=== PATIENT | female | born 1965 | race Caucasian/White ===

== ENCOUNTER → 2018-03-18 10:13 | Outpatient (CLI) | payer OTHER, SELFPAY ==
--- NOTE | 2018-03-18 | DI.CT.S_ITS ---
PROCEDURE: CT ABDOMEN PELVIS W CON INDICATIONS: epigastric pain TECHNIQUE: After the administration of oral and intravenous contrast, 5 mm thick sections acquired from the diaphragms to the symphysis. 5 mm thick coronal and sagittal reformats were performed. For radiation dose reduction, the following was used: automated exposure control, adjustment of mA and/or kV according to patient size. COMPARISON: [facility], CT, ABDOMEN/PELVIS WITH CONTRAST, 09/21/2014, 17:09. [facility], US, ABDOMEN COMPLETE, 09/25/2016, 13:51. FINDINGS: Image quality: Excellent. ABDOMEN: Lung bases: Lung bases are clear. Heart size is normal. Solid organs: Liver is normal in size with homogeneous decreased attenuation. The 10 mm subcapsular cyst is again noted anteriorly. Gallbladder appears clear, partially contracted.. Biliary system is non-dilated. Pancreas enhances normally. Spleen is normal in size and enhancement. No adrenal nodules. Kidneys are normal in size and enhancement, without hydronephrosis. Peritoneum and bowel: Stomach, small bowel, and colon loops are normal in caliber and wall thickness. Normal appendix. Circumferential suture is again noted at the anorectal junction. No evidence of tumor recurrence or adenopathy. No free fluid or air. Nodes and vessels: No retroperitoneal or mesenteric adenopathy. Aorta and inferior vena cava are normal in caliber. Miscellaneous: No ventral hernias. PELVIS: Genitourinary: Bladder wall thickness is normal. Miscellaneous: No inguinal hernias or adenopathy. Bones: No suspicious bony lesions. No vertebral body compression fractures. IMPRESSION: 1. No acute findings in the abdomen or pelvis to explain abdominal pain. 2. Mild hepatic steatosis. Simple hepatic cyst, unchanged. 3. Postoperative changes at the anorectal junction with no apparent abnormality. 4. Normal appendix is demonstrated. No inflammatory bowel disease seen. Dictated by: Oemga Sanchez M.D. on 03/18/2018 at 12:00 Approved by: Omega Sanchez M.D. on 03/18/2018 at 12:12
== END ==
PROVIDERS: Family Provider Family Medicine; PCP Physician Assistant; Visit Provider Family Medicine
DX: R10.13 Epigastric pain (principal); K76.0 Fatty (change of) liver, not elsewhere classified; K76.89 Other specified diseases of liver
CPT/HCPCS: 74177; Q9967

== ENCOUNTER → 2018-06-16 09:34 | Outpatient (CLI) | payer OTHER, SELFPAY ==
--- NOTE | 2018-06-16 | DI.NM.S_ITS ---
PROCEDURE: NM HIDA WITH CCK PHARMACEUTICAL: 19.4 mCi Tc-99m mebrofenin IV; 1.5 mcg CCK IV. INDICATIONS: BILIARY COLIC TECHNIQUE: Following intravenous administration of Tc-99m mebrofenin, sequential anterior abdominal images were obtained. To evaluate the contractile response of the gallbladder in response to Cholecystokinin (CCK), sincalide (0.02 ?g/kg) was administered by slow intravenous infusion approximately 60 minutes after the administration of the radiopharmaceutical. Sequential imaging was continued for 30 minutes after the start of CCK infusion. Gallbladder ejection fraction was calculated. COMPARISON: None. FINDINGS: Biliary scan: There is normal tracer uptake and excretion by the liver. There is normal visualization of the intrahepatic ducts, common bile duct, and gallbladder. There is normal tracer transit into the duodenum. CCK stimulation: There is normal contractile response of the gallbladder to CCK infusion. The calculated gallbladder ejection fraction is 65%; normal values are above 35%. It has been shown that any patient abdominal pain after CCK administration is related to the rate of CCK injection, rather than to any underlying gallbladder disease (Clinical Nuclear Medicine 2012; 37: 63-70. Journal of Nuclear Medicine 2014; 55: 1-9). IMPRESSION: Normal examination without evidence of cholecystitis. Dictated by: Lori Lucia MD, PhD on 06/16/2018 at 12:11 Approved by: Lori Lucia MD, PhD on 06/16/2018 at 12:12
== END ==
PROVIDERS: PCP Family Medicine; Visit Provider Family Medicine
DX: K80.50 Calculus of bile duct without cholangitis or cholecystitis without obstruction (principal)
CPT/HCPCS: 78227; A9537; J2805

== ENCOUNTER → 2019-06-23 11:05 | Outpatient (CLI) | payer OTHER, SELFPAY ==
--- NOTE | 2019-06-23 | DI.MRI.S_ITS ---
PROCEDURE: MR LUMBAR SPINE WO CON INDICATIONS: LOW LACK PAIN TECHNIQUE: Noncontrast sagittal T1 spin echo and T2 fast echo, sagittal STIR, axial T1 and T2 fast spin echo through the lumbar spine. In cases with scoliosis, additional coronal T2 fast spin echo may be performed. COMPARISON: [facility], CT, CT ABDOMEN PELVIS W CON, 03/18/2018, 11:33. [facility] [place], CR, XR LUMBAR SPINE 2 OR 3 VIEWS, 05/10/2019, 9:37. FINDINGS: Image quality: Excellent. Alignment and Curvature: There is grade 1 anterolisthesis of L3 on L4 and L4 on L5. Bone Marrow: Marrow is of normal overall signal. No acute vertebral body compression fractures. Spinal Cord: Conus medullaris terminates at the L1 level. Visualized cord demonstrates normal signal and size. Paraspinous Soft Tissues: No paravertebral masses. L1-L2: Normal appearance. L2-L3: Normal appearance. L3-L4: Mild loss of disc height and disc desiccation. There is diffuse posterior disc bulge. Mild bilateral facet arthropathy and hypertrophy of ligamentum flavum. There is a 3 mm synovial cyst anteromedial to the left facet joint. The central canal is pihd-pv-btpwxundez narrowed. Mild bilateral foraminal stenosis. Probable nerve root impingement it is an oval cyst to cauda equina nerve roots. L4-L5: Mild loss of disc height and disc desiccation. There is diffuse posterior disc bulge. Mild bilateral facet arthropathy and hypertrophy of ligamentum flavum. The central canal is mildly narrowed. No significant foraminal stenosis. No definitive nerve root impingement. L5-S1: Normal appearance. IMPRESSION: 1. Multilevel degenerative disc disease and facet arthropathy as described. 2. Rgsy-yd-otixwerp central canal stenosis at L3-L4, and mild central canal stenosis at L4-L5. 3. Mild foraminal stenosis at L3 and L4 bilaterally. Dictated by: Raymundo rFench M.D. on 06/23/2019 at 15:35 Approved by: Raymundo French M.D. on 06/23/2019 at 15:44
== END ==
PROVIDERS: PCP Family Medicine; Visit Provider Orthopaedic Surgery
DX: M54.5 Low back pain (principal); M51.36 Other intervertebral disc degeneration, lumbar region; M48.061 Spinal stenosis, lumbar region without neurogenic claudication; M47.816 Spondylosis without myelopathy or radiculopathy, lumbar region
CPT/HCPCS: 72148

== ENCOUNTER → 2020-12-19 11:14 | Outpatient (CLI) | payer OTHER, SELFPAY ==
--- NOTE | 2020-12-19 | DI.MG.S_ITS ---
BILATERAL DIGITAL SCREENING MAMMOGRAM 3D/2D WITH CAD: 12/19/2020 CLINICAL: Routine screening. Family history of breast cancer. Comparison is made to exams dated: 05/05/2019 mammogram - [facility], 12/31/2017 mammogram, and 12/11/2016 mammogram - [facility]. There are scattered fibroglandular elements in both breasts. Current study was also evaluated with a Computer Aided Detection (CAD) system. There is a benign lymph node in the left breast. There also is a biopsy clip in the right breast. No significant masses, calcifications, or other findings are seen in either breast. There has been no significant interval change. IMPRESSION: BENIGN There is no mammographic evidence of malignancy. A 1 year screening mammogram is recommended. This exam was interpreted at Station ID: [id number]. NOTE: For mammograms, a report in lay terms will be sent to the patient. Approximately 15% of breast malignancies will not be visualized mammographically. In the management of a palpable breast mass, a negative mammogram must not discourage biopsy of a clinically suspicious lesion. Electronically Signed By: Josh Pa acr/penrad:12/19/2020 12:21:53 letter sent: Normal Exam ACR BI-RADS Category 2: Benign Finding(s) [id number]
== END ==
PROVIDERS: PCP Family Medicine; Referring Provider Family Medicine; Visit Provider Family Medicine
DX: Z12.31 Encounter for screening mammogram for malignant neoplasm of breast (principal)
CPT/HCPCS: 77063; 77067

== ENCOUNTER → 2021-08-15 08:52 | Outpatient (CLI) | payer OTHER, SELFPAY ==
[2021-08-15 20:04] LABS: COVID19 - ORCAS (NP or Nasal) POSITIVE (Negative)
== END ==
PROVIDERS: PCP Family Medicine; Visit Provider Physician Assistant Medical
DX: Z20.822 Contact with and (suspected) exposure to COVID-19 (principal)
CPT/HCPCS: U0003

== ENCOUNTER → 2021-09-17 08:48 | Outpatient (CLI) | payer OTHER, SELFPAY ==
[2021-09-17 18:47] LABS: Add Manual Diff / Slide Review NO; Basophils Absolute Auto 100 /uL (0-100); Basophils Percent Auto 1.2 % (0-2); Eosinophils Absolute Auto 600 /uL (0-450); Hematocrit 39.5 % (36-46); Hemoglobin 13.6 g/dL (12.0-16.0); Lymphocytes Absolute Auto 2000 /uL (1100-4500); Lymphocytes Percent Auto 34.7 % (25-40); Mean Corpuscular HGB Conc 34.3 % (30-36); Mean Corpuscular Hemoglobin 30.1 PG (26-34); Mean Corpuscular Volume 87.5 fL (80-100); Monocytes Absolute Auto 500 /uL (0-900); Monocytes Percent Auto 8.1 % (3-14); Neutrophils Absolute Auto 2600 /uL (1500-7000); Platelet Count 208 X10^3/uL (150-400); Red Blood Cell Count 4.52 X10^6/uL (4.0-5.2); Red Cell Distribution Width 12.6 % (11.6-14.8); White Blood Cell Count 5.7 X10^3/uL (4.5-11.0)
[2021-09-17 18:57] LABS: C-Reactive Protein Quant < 0.5 mg/dL (<1.0)
[2021-09-17 19:01] LABS: Alanine Aminotransferase 21 IU/L (<35); Albumin 4.7 g/dL (3.5-5.0); Albumin Globulin Ratio 1.6 (1.0-2.8); Alkaline Phosphatase 69 U/L (38-126); Aspartate Aminotransferase 28 IU/L (14-36); BUN Creatinine Ratio 13.5 (6-22); Bilirubin Total 0.6 mg/dL (0.2-1.3); Blood Urea Nitrogen 10 mg/dL (7-17); Calcium 10.1 mg/dL (8.4-10.2); Carbon Dioxide 26 mmol/L (22-32); Chloride 105 mmol/L (98-107); Cholesterol 260 mg/dL (140-199); Estimated Glomerular Filt Rate > 60.0 mL/min (>60); Globulin 2.9 g/dL (1.7-4.1); Glucose 100 mg/dL (70-100); HDL Cholesterol 69 mg/dL (40-60); HEMOLYSIS < 15 (0-50); LDL Cholesterol Calculated 157 mg/dL (<100); Potassium 4.5 mmol/L (3.4-5.1); Sodium 140 mmol/L (137-145); Total Protein 7.6 g/dL (6.3-8.2); Triglycerides 168 mg/dL (35-150)
[2021-09-17 19:05] LABS: Hemoglobin A1C% w Est Avg Glu 5.6 % (4.0-6.0)
[2021-09-17 19:08] LABS: Erythrocyte Sedimentation Rate 4 MM/HR (0-20)
[2021-09-17 19:29] LABS: TSH w/ Reflex to FT4 2.56 uIU/mL (0.47-4.68)
== END ==
PROVIDERS: PCP Physician Assistant; Referring Provider Physician Assistant; Visit Provider Physician Assistant
DX: E78.00 Pure hypercholesterolemia, unspecified (principal); R73.09 Other abnormal glucose; E89.0 Postprocedural hypothyroidism; G93.3 Postviral and related fatigue syndromes; R52 Pain, unspecified; R11.0 Nausea
CPT/HCPCS: 80053; 80061; 83036; 84443; 85025; 85651; 86140

== ENCOUNTER → 2022-07-26 08:52 | Outpatient (CLI) | payer OTHER, SELFPAY | PROVIDERS: PCP Physician Assistant; Referring Provider Physician Assistant; Visit Provider Physician Assistant | DX: H81.10 Benign paroxysmal vertigo, unspecified ear (principal); M54.2 Cervicalgia; M62.838 Other muscle spasm ==

== ENCOUNTER → 2022-08-08 08:39 | Outpatient (CLI) | payer OTHER, SELFPAY ==
--- NOTE | 2022-08-08 08:40 | DI.MRI.S_ITS ---
PROCEDURE: MR CERVICAL SPINE WO CON INDICATIONS: neck pain TECHNIQUE: Noncontrast sagittal T1 spin echo and T2 fast spin echo, sagittal STIR, foraminal oblique sagittal T2 fast spin echo, and axial gradient echo or T2 fast spin echo through the cervical spine. COMPARISON: [facility], CT, CT CERVICAL SPINE WITHOUT CONTRAST, 04/15/2020, 13:48. FINDINGS: Image quality: Excellent. Alignment and Curvature: There is loss of normal cervical lordosis. 4 mm of retrolisthesis of C5 on C6 is present. Bone Marrow: Marrow demonstrates normal overall signal. Mild reactive signal throughout the endplates of the cervical and upper thoracic spine. Spinal Cord: Visualized spinal cord has normal size and signal. No cerebellar tonsillar herniation. Paraspinous Soft Tissues: No paravertebral masses. Prevertebral soft tissues are normal in thickness. C2-C3: Mild disc desiccation and diffuse disc bulge. Mild facet and uncovertebral hypertrophy. Mild canal stenosis. Mild bilateral foraminal stenosis. C3-C4: Mild disc height loss and desiccation. Mild diffuse disc bulge with superimposed small central protrusion. Moderate right and mild left facet and uncovertebral hypertrophy. Congenital canal stenosis. Moderate canal stenosis. Severe right and moderate left foraminal stenosis. Right C4 nerve root compression. C4-C5: Congenital canal stenosis. Moderate disc desiccation. Mild diffuse disc bulge. Mild facet and uncovertebral hypertrophy bilaterally. Moderate canal stenosis. Moderate bilateral foraminal stenosis. C5-C6: Moderate disc height loss and desiccation. Mild diffuse disc bulge with superimposed small central and broad-based left posterolateral protrusions. Congenital canal stenosis. Left greater than right facet and uncovertebral hypertrophy. Severe canal stenosis. Mild cord flattening. Severe left and moderate right foraminal stenosis. Left C6 nerve root compression. C6-C7: Moderate disc desiccation. Mild diffuse disc bulge. Mild facet and uncovertebral hypertrophy bilaterally. Congenital canal stenosis. Moderate canal stenosis. Moderate left and mild right foraminal stenosis. C7-T1: Moderate disc desiccation. Mild disc height loss and diffuse disc bulge. Mild facet and uncovertebral hypertrophy bilaterally. Mild canal stenosis. Mild bilateral foraminal stenosis. IMPRESSION: 1. Diffuse congenital canal stenosis with superimposed disc and facet disease, as well as uncovertebral hypertrophy. 2. Multilevel canal stenoses, worst at C5-C6 where there is mild cord flattening. 3. Multilevel foraminal stenoses, worst at C3-C4 and C5-C6 where there is associated intraforaminal nerve root compression. Recommend correlation with clinical symptoms to ascertain relevance of these findings. Dictated by: Martha Roberts M.D. on 08/08/2022 at 8:42 Approved by: Martha Roberts M.D. on 08/08/2022 at 8:45
--- NOTE | 2022-08-08 08:40 | DI.MRI.S_ITS ---
PROCEDURE: MR LUMBAR SPINE WO CON INDICATIONS: low back pain with sciatica TECHNIQUE: Noncontrast sagittal T1 spin echo and T2 fast echo, sagittal STIR, and T2 fast spin echo through the lumbar spine. In cases with scoliosis, additional coronal T2 fast spin echo may be performed. COMPARISON: [facility], MR, MR LUMBAR SPINE WO CON, 06/23/2019, 11:26. [facility] [place], CR, XR LUMBAR SPINE 2 OR 3 VIEWS, 05/10/2019, 9:37. FINDINGS: Image quality: Excellent. Alignment and Curvature: 5 lumbar type vertebral bodies are present by plain film. There is loss of normal lumbar lordosis. Roughly 2 mm of anterolisthesis of L3 on L4 is present. Bone Marrow: Marrow is of normal overall signal. No acute vertebral body compression fractures. Minimal reactive signal within the endplates of the thoracolumbar spine. Spinal Cord: Conus medullaris terminates at the lower L1 level. Visualized cord demonstrates normal signal and size. Paraspinous Soft Tissues: No paravertebral masses. T12-L1: Moderate disc height loss and desiccation. Mild facet and ligamentum flavum hypertrophy. No significant canal, or foraminal stenosis. No significant change. L1-L2: Mild facet hypertrophy. No significant canal, or foraminal stenosis. No significant change. L2-L3: Mild facet and ligamentum flavum hypertrophy. Mild epidural lipomatosis. No significant canal, or foraminal stenosis. No significant change. L3-L4: Mild disc height loss and desiccation. Mild diffuse disc bulge. Mild facet and ligamentum flavum hypertrophy. Mild canal stenosis. Mild bilateral foraminal stenosis. No significant change. L4-L5: Mild disc desiccation and diffuse disc bulge. Mild facet and ligamentum flavum hypertrophy. Mild canal stenosis. Mild bilateral foraminal stenosis. No significant change. L5-S1: Mild facet hypertrophy bilaterally. No significant canal, or foraminal stenosis. No significant change. IMPRESSION: 1. No acute process. 2. Multilevel degenerative disc and facet disease, as well as ligamentum flavum hypertrophy and epidural lipomatosis. 3. Mild multilevel canal and foraminal stenoses. No neural impingement. Dictated by: Martha Roberts M.D. on 08/08/2022 at 8:39 Approved by: Martha Roberts M.D. on 08/08/2022 at 8:41
== END ==
PROVIDERS: PCP Physician Assistant; Referring Provider Physician Assistant; Visit Provider Physician Assistant
DX: M48.02 Spinal stenosis, cervical region (principal); M50.31 Other cervical disc degeneration, high cervical region; M51.16 Intervertebral disc disorders with radiculopathy, lumbar region; M47.812 Spondylosis without myelopathy or radiculopathy, cervical region; M48.061 Spinal stenosis, lumbar region without neurogenic claudication; M54.50 Low back pain, unspecified
CPT/HCPCS: 72141; 72148

== ENCOUNTER 2022-09-08 10:36 | Emergency (ER) | payer OTHER, SELFPAY ==
[2022-09-08 11:08] VITALS: BP 137/70; PULSE 58; RESP 16; TEMP 36.5; O2SAT 99; BMI 28.8
[2022-09-08 13:13] VITALS: BP 122/68; PULSE 61; O2SAT 99
[2022-09-08] MEDS: OXYCODONE/ACETAMINOPHEN 5/325 TABLET 1 TAB PO (15:01)
[2022-09-08 15:02] VITALS: BP 118/73; PULSE 64; RESP 18; O2SAT 97
--- NOTE | 2022-09-08 17:01 | ED_ITS ---
HPI - Extremity Injury (Upper) <Michaela Mckeon PA-C - Last Filed: 09/08/22 17:11> General Chief Complaint: Extremity Injury, Upper Stated Complaint: right arm injury, fell this morning sent by [place] Time Seen by Provider: 09/08/22 12:18 Source: patient Mode of arrival: Ambulatory History of Present Illness HPI narrative: 57-year-old female with past medical history hyperlipidemia, carpal tunnel presents to the ED status post a right shoulder injury sustained just prior to arrival. Patient states she was walking her dog when the dog got in her way, causing her to incur a mechanical trip and fall. Patient also scraped her right knee and her left palm. Patient was seen in the [facility], x-ray revealed a comminuted and slightly displaced fracture through the proximal humerus shaft extending to involve the greater tuberosity. Patient was sent to the ED from [facility] for further evaluation and treatment. Patient was put in a sling, given Toradol at the clinic with minimal pain relief. Patient denies numbness, tingling, weakness. Related Data Previous Rx's Medication Instructions Recorded levothyroxine 150 mcg tablet See Rx Instructions .Route 05/05/22 .COMPLEX #90 tabs gabapentin 100 mg capsule 100 mg PO TID #60 caps 06/22/22 meloxicam 15 mg tablet 15 mg PO DAILY #30 tabs 06/22/22 cyclobenzaprine 10 mg tablet 10 mg PO BEDTIME #10 tabs 07/09/22 Allergies Allergy/AdvReac Type Severity Reaction Status Date / Time metaxalone [METAXALONE] Allergy Mild JITTERY Verified 09/08/22 11:08 AND TAMARAKY cyclobenzaprine Allergy Unknown Verified 09/08/22 11:08 Review of Systems <Michaela Mckeon PA-C - Last Filed: 09/08/22 17:11> Review of Systems ROS Unobtainable: All systems reviewed & are unremarkable except as noted in HPI and below Constitutional Constitutional: Denies chills, Denies fatigue, Denies fever(s), Denies frequent falls, Denies lethargy and Denies weakness Eyes Eyes: Denies change in vision, Denies eye discharge, Denies irritation and Denies loss of vision ENT Ears, Nose, Mouth, and Throat: Denies change in voice, Denies dizziness, Denies neck pain, Denies sore throat and Denies throat swelling Cardiovascular Cardiovascular: Denies chest pain, Denies irregular heart rhythm, Denies lightheadedness, Denies palpitations, Denies dyspnea, Denies dyspnea on exertion and Denies orthopnea Respiratory Respiratory: Denies cough, Denies dyspnea, Denies dyspnea on exertion and Denies wheezing Gastrointestinal Gastrointestinal: Denies abdominal pain, Denies change in bowel habits, Denies diarrhea, Denies nausea and Denies vomiting Genitourinary Genitourinary: Denies hematuria, Denies flank pain, Denies urinary incontinence and Denies urinary urgency Musculoskeletal Musculoskeletal: Denies back pain, Denies muscle weakness, Denies neck pain, Denies numbness and Denies tingling Comments: Left shoulder pain Integumentary/Breasts Skin/Breast: Denies pruritus, Denies erythema, Denies rash and Denies wounds Neurologic Neurologic: Denies behavioral changes, Denies confusion, Denies dizziness, Denies frequent falls, Denies loss of vision, Denies numbness, Denies tingling and Denies weakness Psychiatric Psychiatric: Denies anxiety, Denies behavioral changes, Denies confusion, Denies depression, Denies homicidal ideation and Denies suicidal ideation Endocrine Endocrine: Denies fatigue, Denies flushing and Denies palpitations Hematologic/Lymphatic Hematologic/Lymphatic: Denies easy bruising Allergic/Immunologic Allergic/Immunologic: Denies urticaria, Denies throat swelling and Denies wheezing Patient History <Michaela Mckeon PA-C - Last Filed: 09/08/22 17:11> Medical History Fibroblastic disorder Human papilloma virus Hypothyroidism (07/07/12) Pain in right knee Postoperative hypothyroidism Surgical History History of third molar tooth extraction History of thyroidectomy Status post adenoidectomy Status post delivery (01/17/89) Status post delivery (07/11/91) Status post delivery (03/28/96) Status post laparoscopic supracervical hysterectomy Social History Smoking Status: Former smoker Smoking Status: Former smoker alcohol intake frequency: holidays/special occasions only Substance Use Type: does not use Exam <Michaela Mckeon PA-C - Last Filed: 09/08/22 17:11> Narrative Exam Narrative: Const General:?cooperative, healthy appearing and comfortable [facility] Head:?normal to inspection Ears:?hearing grossly normal bilaterally Nose:?external nose normal Face and sinus:?normal facial exam and sinuses nontender Mouth:?oral mucosae normal Throat:?posterior oropharynx normal Eyes General:?appearance normal, both eyes and all related structures Neck Neck:?normal visual inspection and no lymphadenopathy noted Resp Effort & Inspection:?normal respiratory effort Auscultation:?clear to auscultation bilaterally Cardio Rate:?regular rate Rhythm:?regular rhythm Musculoskeletal Patient presents to the ED with her right arm in a sling. Patient is able to wiggle her fingers. Strength and sensation is intact. No signs of compartment syndrome on exam. Patient is neurovascularly intact. Right knee appears to be scraped, with minimal abrasions, no tenderness to palpation, no deformities. Left palm with minimal abrasions, no tenderness to palpations, no deformities. Neuro General:?patient alert, patient awake and patient oriented x3 Initial Vital Signs Initial Vital Signs: Vital Signs Temperature 97.7 F 09/08/22 11:08 Pulse Rate 58 L 09/08/22 11:08 Respiratory Rate 16 09/08/22 11:08 Blood Pressure 137/70 09/08/22 11:08 Pulse Oximetry 99 09/08/22 11:08 Oxygen Delivery Method 09/08/22 11:08 <Otis Levy MD - Last Filed: 09/16/22 21:46> Initial Vital Signs Initial Vital Signs: Vital Signs Temperature 97.7 F 09/08/22 11:08 Pulse Rate 58 L 09/08/22 11:08 Respiratory Rate 16 09/08/22 11:08 Blood Pressure 137/70 09/08/22 11:08 Pulse Oximetry 99 09/08/22 11:08 Oxygen Delivery Method 09/08/22 11:08 Course <Michaela Mckeon PA-C - Last Filed: 09/08/22 17:11> Orders Ordered: Discontinued Medications Oxycodone/Acetaminophen (Oxycodone/Acetaminophen 5/325 Tablet) 1 tab PO NOW ONE Stop: 09/08/22 14:56 Last Admin: 09/08/22 15:01 Dose: 1 tab Documented By: DEE Vital Signs Vital signs: Vital Signs - 8 hr 09/08/22 11:08 09/08/22 13:13 09/08/22 15:02 Temperature 97.7 F Pulse Rate 58 L 61 64 Respiratory Rate 16 18 Blood Pressure 137/70 122/68 118/73 Pulse Oximetry 99 99 97 Oxygen Delivery Method Room Air Room Air Room Air <Otis Levy MD - Last Filed: 09/16/22 21:46> Orders Ordered: Discontinued Medications Oxycodone/Acetaminophen (Oxycodone/Acetaminophen 5/325 Tablet) 1 tab PO NOW ONE Stop: 09/08/22 14:56 Last Admin: 09/08/22 15:01 Dose: 1 tab Documented By: DEE Vital Signs Vital signs: Vital Signs - 8 hr 09/08/22 11:08 09/08/22 13:13 09/08/22 15:02 Temperature 97.7 F Pulse Rate 58 L 61 64 Respiratory Rate 16 18 Blood Pressure 137/70 122/68 118/73 Pulse Oximetry 99 99 97 Oxygen Delivery Method Room Air Room Air Room Air MDM - Extremity Injury (Upper) <Michaela Mckeon PA-C - Last Filed: 09/08/22 17:11> MDM Narrative Medical decision making narrative: 57-year-old female with past medical history hyperlipidemia, carpal tunnel presents to the ED status post a right shoulder injury sustained just prior to arrival. Given nature of the fracture, treatment approach will be to fit in a sling and control pain, f/u with ortho. Patient has good motion of her fingers, there is no evidence of compartment syndrome on exam. Patient has strength and sensation intact and patient is neurovascularly intact. Patient was given a Percocet in the ED with improvement to the pain. Patient prescribed Percocet for home use until she is able to see ortho. Recommend follow-up with ortho at [facility]. ED precautions were discussed with patient. Patient verbalized understanding. ? Medical records reviewed:??Yes ? Imaging studies independently reviewed: Yes ? Disposition: see below, along with detailed discharge instructions that have been reviewed with patient as well as indications for ED re-evaluation and additional outpatient follow up Discharge Plan Departure Patient Disposition: Home Clinical Impression: Humeral fracture Instructions: DI for Humeral Fracture Activity Restrictions/Additional Instructions: You were evaluated in the ED today for a right-sided humeral fracture. Shows an acute comminuted and slightly displaced fracture of the right upper arm. The treatment for these types of fractures is to immobilize with a sling that you have already been fitted with at the [facility], and to control your pain. You were given a dose of Percocet in the ED for pain control. You are being given a prescription for Percocet for the next few days. Please be aware that the medication can make you sleepy and prone to falls. Please do not operate any machinery, drive when you are taking this medication. Return to the ED if you experience worsening pain, numbness, tingling, weakness. Please follow-up with [facility] at [phone] as soon as possible for further evaluation and treatment. Prescriptions: No Action levothyroxine 150 mcg tablet See Rx Instructions .ROUTE .COMPLEX Qty: 90 1RF Dose Instruction: TAKE ONE TABLET BY MOUTH EVERY DAY Rx Instructions: TAKE ONE TABLET BY MOUTH EVERY DAY cyclobenzaprine 10 mg tablet 10 mg PO BEDTIME Qty: 10 0RF meloxicam 15 mg tablet 15 mg PO DAILY Qty: 30 0RF gabapentin 100 mg capsule 100 mg PO TID Qty: 60 0RF Referrals: Digna Cochran PA-C [Primary Care Provider] - Stand Alone Forms: Patient Portal/API <Otis Levy MD - Last Filed: 09/16/22 21:46> [facility]: I was immediately available in the department for consultation. Documentation has been reviewed. I agree with assessment and plan.
== END 2022-09-08 15:20 | disposition home or self-care (01) ==
PROVIDERS: Emergency Provider Student in an Organized Health Care Education/Training Program; PCP Physician Assistant
DX: S42.351A Displaced comminuted fracture of shaft of humerus, right arm, initial encounter for closed fracture (principal); W01.0XXA Fall on same level from slipping, tripping and stumbling without subsequent striking against object, initial encounter; Y93.K1 Activity, walking an animal
CPT/HCPCS: 99283

== ENCOUNTER → 2022-12-10 10:33 | Outpatient (CLI) | payer OTHER, SELFPAY ==
[2022-12-10 20:27] LABS: Add Manual Diff / Slide Review NO; Basophils Absolute Auto 0 /uL (0-100); Basophils Percent Auto 0.6 % (0-2); Eosinophils Absolute Auto 100 /uL (0-450); Hematocrit 40.9 % (36-46); Hemoglobin 13.7 g/dL (12.0-16.0); Lymphocytes Absolute Auto 2200 /uL (1100-4500); Lymphocytes Percent Auto 39.5 % (25-40); Mean Corpuscular HGB Conc 33.5 % (30-36); Mean Corpuscular Hemoglobin 30.5 PG (26-34); Mean Corpuscular Volume 91.1 fL (80-100); Monocytes Absolute Auto 400 /uL (0-900); Monocytes Percent Auto 7.9 % (3-14); Neutrophils Absolute Auto 2700 /uL (1500-7000); Platelet Count 359 X10^3/uL (150-400); Red Blood Cell Count 4.49 X10^6/uL (4.0-5.2); Red Cell Distribution Width 13.6 % (11.6-14.8); White Blood Cell Count 5.4 X10^3/uL (4.5-11.0)
[2022-12-10 20:59] LABS: Alanine Aminotransferase 28 IU/L (<35); Albumin 4.6 g/dL (3.5-5.0); Albumin Globulin Ratio 1.5 (1.0-2.8); Alkaline Phosphatase 84 U/L (38-126); Aspartate Aminotransferase 27 IU/L (14-36); BUN Creatinine Ratio 13.3 (6-22); Bilirubin Total 0.7 mg/dL (0.2-1.3); Blood Urea Nitrogen 10 mg/dL (7-17); Calcium 9.9 mg/dL (8.4-10.2); Carbon Dioxide 29 mmol/L (22-32); Chloride 101 mmol/L (98-107); Cholesterol 242 mg/dL (140-199); Estimated Glomerular Filt Rate > 60 mL/min (>60); Glucose 99 mg/dL (70-100); HDL Cholesterol 75 mg/dL (40-60); HEMOLYSIS < 15 (0-50); LDL Cholesterol Calculated 141 mg/dL (<100); Potassium 4.4 mmol/L (3.4-5.1); Sodium 138 mmol/L (137-145); Total Protein 7.6 g/dL (6.3-8.2); Triglycerides 131 mg/dL (35-150)
[2022-12-10 21:19] LABS: TSH w/ Reflex to FT4 6.22 uIU/mL (0.47-4.68)
[2022-12-11 01:40] LABS: Free T4, Direct Thyroxine 1.43 ng/dL (0.78-2.19)
== END ==
PROVIDERS: PCP Physician Assistant; Visit Provider Physician Assistant
DX: E78.5 Hyperlipidemia, unspecified (principal); E89.0 Postprocedural hypothyroidism; Z12.11 Encounter for screening for malignant neoplasm of colon
CPT/HCPCS: 80053; 80061; 84439; 84443; 85025

== ENCOUNTER → 2023-01-13 10:35 | Outpatient (CLI) | payer OTHER, SELFPAY ==
[2023-01-13 19:52] LABS: Alanine Aminotransferase 26 IU/L (<35); Albumin 4.6 g/dL (3.5-5.0); Albumin Globulin Ratio 1.6 (1.0-2.8); Alkaline Phosphatase 86 U/L (38-126); Aspartate Aminotransferase 26 IU/L (14-36); BUN Creatinine Ratio 15.1 (6-22); Bilirubin Total 0.9 mg/dL (0.2-1.3); Blood Urea Nitrogen 11 mg/dL (7-17); Calcium 9.6 mg/dL (8.4-10.2); Carbon Dioxide 28 mmol/L (22-32); Chloride 99 mmol/L (98-107); Cholesterol 228 mg/dL (140-199); Estimated Glomerular Filt Rate > 60 mL/min (>60); Globulin 2.8 g/dL (1.7-4.1); Glucose 95 mg/dL (70-100); HDL Cholesterol 78 mg/dL (40-60); HEMOLYSIS < 15 (0-50); LDL Cholesterol Calculated 120 mg/dL (<100); Potassium 4.3 mmol/L (3.4-5.1); Sodium 135 mmol/L (137-145); Total Protein 7.4 g/dL (6.3-8.2); Triglycerides 151 mg/dL (35-150)
[2023-01-13 20:53] LABS: Free T4, Direct Thyroxine 0.93 ng/dL (0.78-2.19)
== END ==
PROVIDERS: PCP Physician Assistant; Visit Provider Physician Assistant
DX: E03.9 Hypothyroidism, unspecified (principal); E78.5 Hyperlipidemia, unspecified; Z78.9 Other specified health status; Z79.899 Other long term (current) drug therapy
CPT/HCPCS: 80053; 80061; 84439; 84443

== ENCOUNTER → 2023-06-08 11:28 | Outpatient (CLI) | payer OTHER, SELFPAY ==
[2023-06-08 19:09] LABS: Cholesterol 248 mg/dL (140-199); HDL Cholesterol 88 mg/dL (40-60); LDL Cholesterol Calculated 113 mg/dL (<100); Triglycerides 237 mg/dL (35-150)
[2023-06-08 19:32] LABS: Free T3, Triiodothyronine Free 3.03 pg/mL (2.77-5.27); Free T4, Direct Thyroxine 1.14 ng/dL (0.78-2.19)
[2023-06-08 19:45] LABS: Thyroid Stimulating Hormone 7.57 uIU/mL (0.47-4.68)
== END ==
PROVIDERS: PCP Physician Assistant; Visit Provider Physician Assistant
DX: Z79.899 Other long term (current) drug therapy (principal); E03.9 Hypothyroidism, unspecified; Z78.9 Other specified health status; E78.5 Hyperlipidemia, unspecified
CPT/HCPCS: 80061; 84439; 84443; 84481

== ENCOUNTER → 2023-06-21 09:43 | Outpatient (CLI) | payer OTHER, SELFPAY ==
[2023-06-23 17:28] LABS: Fecal Immunochemical Test Negative (Negative)
== END ==
PROVIDERS: PCP Physician Assistant; Visit Provider Physician Assistant
DX: E89.0 Postprocedural hypothyroidism (principal); E78.5 Hyperlipidemia, unspecified; Z12.11 Encounter for screening for malignant neoplasm of colon; R19.7 Diarrhea, unspecified
CPT/HCPCS: 82274; 87045; 87177; 87329; 87899

== ENCOUNTER → 2023-09-28 11:07 | Outpatient (CLI) | payer OTHER, SELFPAY ==
[2023-09-28 19:21] LABS: Add Manual Diff / Slide Review NO; Basophils Absolute Auto 0 /uL (0-100); Basophils Percent Auto 0.5 % (0-2); Eosinophils Absolute Auto 100 /uL (0-450); Eosinophils Percent Auto 1.1 % (2-4); Hemoglobin 13.2 g/dL (12.0-16.0); Lymphocytes Absolute Auto 2500 /uL (1100-4500); Lymphocytes Percent Auto 33.8 % (25-40); Mean Corpuscular HGB Conc 33.9 % (30-36); Mean Corpuscular Hemoglobin 31.3 PG (26-34); Mean Corpuscular Volume 92.2 fL (80-100); Monocytes Absolute Auto 500 /uL (0-900); Neutrophils Absolute Auto 4300 /uL (1500-7000); Neutrophils Percent Auto 57.6 % (50-75); Platelet Count 363 X10^3/uL (150-400); Red Blood Cell Count 4.23 X10^6/uL (4.0-5.2); White Blood Cell Count 7.4 X10^3/uL (4.5-11.0)
[2023-09-28 19:29] LABS: Alanine Aminotransferase 25 IU/L (<35); Albumin 4.4 g/dL (3.5-5.0); Albumin Globulin Ratio 1.5 (1.0-2.8); Alkaline Phosphatase 72 U/L (38-126); Amylase 72 U/L (30-110); Aspartate Aminotransferase 27 IU/L (14-36); BUN Creatinine Ratio 16.5 (6-22); Bilirubin Total 0.5 mg/dL (0.2-1.3); Blood Urea Nitrogen 14 mg/dL (7-17); Calcium 9.6 mg/dL (8.4-10.2); Carbon Dioxide 26 mmol/L (22-32); Chloride 101 mmol/L (98-107); Estimated Glomerular Filt Rate > 60 mL/min (>60); Globulin 2.9 g/dL (1.7-4.1); Glucose 103 mg/dL (70-100); HEMOLYSIS < 15 (0-50); Lipase 245 U/L (23-300); Sodium 136 mmol/L (137-145); Total Protein 7.3 g/dL (6.3-8.2)
[2023-09-28 19:40] LABS: Erythrocyte Sedimentation Rate 7 MM/HR (0-20)
[2023-09-28 19:55] LABS: C-Reactive Protein Quant 0.6 mg/dL (<1.0); Thyroid Stimulating Hormone 0.427 uIU/mL (0.47-4.68)
[2023-09-28 20:00] LABS: Ferritin 114 ng/mL (11-264)
== END ==
PROVIDERS: PCP Physician Assistant; Visit Provider Family Medicine
DX: R53.83 Other fatigue (principal); E89.0 Postprocedural hypothyroidism; E03.9 Hypothyroidism, unspecified; R10.9 Unspecified abdominal pain; M54.9 Dorsalgia, unspecified
CPT/HCPCS: 80053; 82150; 82728; 83690; 84443; 85025; 85651; 86140

== ENCOUNTER → 2023-10-15 10:08 | Outpatient (CLI) | payer OTHER, SELFPAY ==
--- NOTE | 2023-10-15 10:10 | DI.US.S_ITS ---
PROCEDURE: US PELVIC COMPLETE INDICATIONS: chronic pelvic pain, s/p hyst (no op note) TECHNIQUE: Real-time scanning was performed of the pelvic organs, with image documentation. Additional endovaginal scanning was necessary due to incomplete visualization of the adnexal and endometrial structures by transabdominal scanning. COMPARISON: [facility], , PELVIC COMPLETE, 09/25/2016, 13:38. FINDINGS: The uterus, ovaries were not visualized on transabdominal or transvaginal ultrasound. Patient reports prior history of hysterectomy but does not know if ovaries were removed. No free fluid seen in the pelvic cul-de-sac. IMPRESSION: Nonvisualized uterus and ovaries on transabdominal or transvaginal ultrasound Dictated by: Michele Senior M.D. on 10/15/2023 at 12:51 Approved by: Michele Senior M.D. on 10/15/2023 at 13:00
--- NOTE | 2023-10-15 10:10 | DI.US.S_ITS ---
PROCEDURE: US ABDOMEN COMPLETE INDICATIONS: PAIN TECHNIQUE: Real-time scanning was performed of the abdominal and retroperitoneal organs, with image documentation. COMPARISON: [facility], US, ABDOMEN COMPLETE, 09/25/2016, 13:51. FINDINGS: Liver: Liver is normal in size and homogeneous in echotexture. Gallbladder: Sonolucent without evidence cholelithiasis, gallbladder wall thickening or pericholecystic fluid. No sonographic Celestin sign. Biliary ducts: Intrahepatic bile ducts are non-dilated. Extrahepatic bile duct caliber measures 5.3 mm. Normal is 6-7 mm or less in diameter, or 10 mm or less post-cholecystectomy. Pancreas: Visualized portions of the pancreas are sonographically normal. Spleen: Spleen is normal in size and homogeneous in echotexture. Kidneys: Kidneys are normal in size and echotexture. Right kidney measures 12.7 cm long; left kidney measures 12.2 cm long. No hydronephrosis or nephrolithiasis. No solid masses. Aorta: Visualized aorta is normal in caliber at less than 3 cm. Iliacs: Proximal common iliac arteries are normal in caliber at less than 2.5 cm. IVC: Intrahepatic inferior vena cava is patent. Miscellaneous: No free abdominal fluid. IMPRESSION: Normal ultrasound of the abdomen Approved by: Alhaji Valerio M.D. on 10/15/2023 at 18:08
== END ==
LOC: US 10:08
PROVIDERS: PCP Family Medicine; Referring Provider Family Medicine; Visit Provider Family Medicine
DX: R10.9 Unspecified abdominal pain (principal); R10.2 Pelvic and perineal pain
CPT/HCPCS: 76700; 76830; 76856

== ENCOUNTER → 2023-11-04 15:08 | Outpatient (CLI) | payer OTHER, SELFPAY ==
--- NOTE | 2023-11-04 15:09 | DI.MRI.S_ITS ---
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 Coronal and axial T2 fast spin echo with fat saturation, sagittal T1 spin echo, and oblique axial T2 fast spin echo with fat saturation through the hip. COMPARISON: [facility] ([place]), CR, XR HIP W PEL IF DONE BILAT 2V, 10/20/2023, 10:10. [facility] ([place]), CR, XR LUMBAR SPINE 2-3V, 10/20/2023, 10:10. Located Within [facility], MR, MR LUMBAR SPINE WO CON, 11/04/2023, 15:17. FINDINGS: Image quality: Diagnostic Bones: Pelvic ring: Intact Femoral head and neck: No fracture. No osteonecrosis. Ligamentum teres: Intact. Lumbar spine and sacrum: No acute finding. Lumbar spine findings are separately dictated Tendons: Abductors: Moderate insertional tendinopathy, and small partial thickness tears. Calcific tendinopathy also suspected. Adductors and rectus abdominis: Pubic symphysis degenerative changes, possible mild edema. IT band: Iliopsoas: Mild insertional tendinopathy, without significant bursal fluid Hamstrings: [id number] tendinopathy at the right origin. Mild tendinopathy at the left origin Rectus femoris: Intact. Joint: Joint space: Moderate degenerative changes, with osteophytes and joint space narrowing. No significant subchondral edema. Minimal effusion Labrum: Circumferential attenuation. Trace signal abnormality are seen in the anterior and superior labrum. Cartilage: Moderate degenerative changes Soft tissues: Quadratus femoris: No edema or atrophy. Piriformis: Symmetric. Intrapelvic structures: Not well evaluated. No pathologic fluid, aneurysm, lymphadenopathy, or suspicious mass. No bowel obstruction. Bladder is unremarkable. IMPRESSION: Moderate hip degenerative changes. Minimal effusion is present. No evidence of serpiginous signal abnormality of the femoral heads is suggest osteonecrosis. Partially seen degenerative changes also seen at the right hip. Scattered areas of tendinopathy as described above, with moderate and calcific involvement of the abductor insertions. Circumferentially attenuated labrum likely degenerative. Trace signal abnormality at the anterior and superior aspect may be due to degenerative changes and prior injury, consider MR arthrogram if there is clinical concern for labral pathology. Dictated by: Tomy Jerry M.D. on 11/04/2023 at 16:57 Approved by: Tomy Jerry M.D. on 11/04/2023 at 17:06
--- NOTE | 2023-11-04 15:09 | DI.MRI.S_ITS ---
PROCEDURE: MR LUMBAR SPINE WO CON INDICATIONS: radiculopathy to RLQ TECHNIQUE: Noncontrast sagittal T1 spin echo and T2 fast echo, sagittal STIR, and T2 fast spin echo through the lumbar spine. In cases with scoliosis, additional coronal T2 fast spin echo may be performed. COMPARISON: None. FINDINGS: Image quality: Excellent. Alignment and Curvature: There is trace, approximately 2 millimeters of L3-L4 and L4-L5 anterolisthesis secondary to facet hypertrophy.. Bone Marrow: Marrow is of normal overall signal. No acute vertebral body compression fractures. Spinal Cord: Conus medullaris terminates at the L1 level. Visualized cord demonstrates normal signal and size. Paraspinous Soft Tissues: No paravertebral masses. T12-L1: Normal appearance. L1-L2: Normal appearance. L2-L3: Normal appearance. L3-L4: Loss of disc signal. Mild, diffuse disc bulge. Moderate bilateral facet hypertrophy. Mild to moderate narrowing of the central canal. No neural foraminal narrowing. No neural compression. L4-L5: Loss of disc signal. Mild, diffuse disc bulge. [id number] bilateral facet hypertrophy. Mild ligamentum flavum hypertrophy. Mild to moderate narrowing of the central canal. No neural foraminal narrowing. No neural compression. L5-S1: Loss of disc signal. Mild, diffuse disc bulge. Mild bilateral facet hypertrophy. No central stenosis. No neural foraminal narrowing. No neural compression. IMPRESSION: Trace L3-L4 and L4-L5 degenerative spondylolisthesis. Multilevel degenerative disc disease. Multilevel facet arthropathy. No severe central canal or neural foraminal stenosis. No neural compression. Dictated by: Lori Lucia MD, PhD on 11/04/2023 at 16:24 Approved by: Lori Lucia MD, PhD on 11/04/2023 at 16:27
--- NOTE | 2023-11-04 15:09 | DI.MRI.S_ITS ---
PROCEDURE: MR THORACIC SPINE WO CON INDICATIONS: radiculopathy to RLQ TECHNIQUE: Noncontrast sagittal T1 spine echo and T2 fast spin echo, sagittal STIR, and T2 fast spin echo through the thoracic spine. COMPARISON: None. FINDINGS: Image quality: Excellent. Alignment and Curvature: There is normal bony alignment. Bone Marrow: Marrow is of normal overall signal. No acute vertebral body compression fractures. Spinal Cord: Visualized spinal cord is normal in size and signal. Paraspinous Soft Tissues: No paravertebral masses. Miscellaneous: Mild degenerative disc changes noted throughout the thoracic spine. Mild facet hypertrophy in the lower thoracic spine. No severe central canal stenosis. No severe neural foraminal narrowing. No neural compression. IMPRESSION: Mild multilevel degenerative disc disease and facet arthropathy. No severe central canal stenosis. No severe neural foraminal narrowing. No neural compression. Dictated by: Lori Lucia MD, PhD on 11/04/2023 at 16:22 Approved by: Lori Lucia MD, PhD on 11/04/2023 at 16:24
== END ==
PROVIDERS: PCP Family Medicine; Referring Provider Family Medicine; Visit Provider Family Medicine
DX: M25.551 Pain in right hip (principal); M25.552 Pain in left hip; M51.34 Other intervertebral disc degeneration, thoracic region; M47.814 Spondylosis without myelopathy or radiculopathy, thoracic region; M54.10 Radiculopathy, site unspecified; M51.36 Other intervertebral disc degeneration, lumbar region; M51.37 Other intervertebral disc degeneration, lumbosacral region; M47.816 Spondylosis without myelopathy or radiculopathy, lumbar region; M47.817 Spondylosis without myelopathy or radiculopathy, lumbosacral region; R93.7 Abnormal findings on diagnostic imaging of other parts of musculoskeletal system; R61 Generalized hyperhidrosis; M54.50 Low back pain, unspecified; R10.10 Upper abdominal pain, unspecified
CPT/HCPCS: 72146; 72148; 73721

== ENCOUNTER → 2024-01-12 13:07 | Outpatient (CLI) | payer OTHER, SELFPAY ==
[2024-01-12 20:09] LABS: Free T3, Triiodothyronine Free 3.09 pg/mL (2.77-5.27)
[2024-01-12 20:21] LABS: Thyroid Stimulating Hormone 10.2 uIU/mL (0.47-4.68)
== END ==
PROVIDERS: Physician Assistant; PCP Family Medicine; Visit Provider Family Medicine
DX: E03.9 Hypothyroidism, unspecified (principal); E78.5 Hyperlipidemia, unspecified
CPT/HCPCS: 84439; 84443; 84481

== ENCOUNTER → 2024-02-24 09:23 | Outpatient (CLI) | payer OTHER, SELFPAY ==
[2024-02-24 20:00] LABS: Cholesterol 268 mg/dL (140-199); HDL Cholesterol 82 mg/dL (40-60); Triglycerides 408 mg/dL (35-150)
[2024-02-24 20:31] LABS: Thyroid Stimulating Hormone 1.47 uIU/mL (0.47-4.68)
== END ==
PROVIDERS: PCP Family Medicine; Visit Provider Family Medicine
DX: E03.9 Hypothyroidism, unspecified (principal); E78.5 Hyperlipidemia, unspecified
CPT/HCPCS: 80061; 84443

== ENCOUNTER → 2024-05-04 10:00 | Outpatient (CLI) | payer BC, SELFPAY ==
[2024-05-04 20:44] LABS: HEMOLYSIS 45 (0-50); Potassium 4.5 mmol/L (3.4-5.1)
[2024-05-04 20:46] LABS: BUN Creatinine Ratio 20.5 (6-22); Blood Urea Nitrogen 16 mg/dL (7-17); Carbon Dioxide 21 mmol/L (22-32); Chloride 101 mmol/L (98-107); Estimated Glomerular Filt Rate > 60 mL/min (>60); Glucose 102 mg/dL (70-100); Sodium 134 mmol/L (137-145)
[2024-05-04 20:56] LABS: LDL Cholesterol Direct 157 mg/dL (<100)
[2024-05-04 21:18] LABS: Thyroid Stimulating Hormone 14.4 uIU/mL (0.47-4.68)
== END ==
PROVIDERS: PCP Family Medicine; Visit Provider Family Medicine
DX: I10 Essential (primary) hypertension (principal); E03.9 Hypothyroidism, unspecified; E78.5 Hyperlipidemia, unspecified
CPT/HCPCS: 80048; 83721; 84443

== ENCOUNTER → 2024-06-06 10:00 | Outpatient (CLI) | payer BC, SELFPAY ==
[2024-06-08 06:36] LABS: Fecal Immunochemical Test Negative (Negative)
== END ==
PROVIDERS: PCP Family Medicine; Visit Provider Family Medicine
DX: Z12.39 Encounter for other screening for malignant neoplasm of breast (principal); Z91.89 Other specified personal risk factors, not elsewhere classified
CPT/HCPCS: 82274

== ENCOUNTER → 2024-07-20 11:19 | Outpatient (CLI) | payer BC, SELFPAY ==
[2024-07-20 19:14] LABS: BUN Creatinine Ratio 15.4 (6-22); Blood Urea Nitrogen 18 mg/dL (7-17); Calcium 10.7 mg/dL (8.4-10.2); Carbon Dioxide 25 mmol/L (22-32); Chloride 96 mmol/L (98-107); Estimated Glomerular Filt Rate 54 mL/min (>60); Glucose 106 mg/dL (70-100); HEMOLYSIS < 15 (0-50); Potassium 4.2 mmol/L (3.4-5.1); Sodium 133 mmol/L (137-145)
[2024-07-20 19:45] LABS: Free T3, Triiodothyronine Free 3.87 pg/mL (2.77-5.27)
[2024-07-20 19:58] LABS: Thyroid Stimulating Hormone 0.018 uIU/mL (0.47-4.68)
[2024-07-22 07:09] LABS: Triiodothyronine T3 Total 110 ng/dL (71-180)
== END ==
PROVIDERS: PCP Family Medicine; Visit Provider Family Medicine
DX: E89.0 Postprocedural hypothyroidism (principal); R79.89 Other specified abnormal findings of blood chemistry
CPT/HCPCS: 80048; 84443; 84480; 84481

== ENCOUNTER → 2024-10-11 09:22 | Outpatient (CLI) | payer BC, SELFPAY ==
[2024-10-11 22:15] LABS: BUN Creatinine Ratio 10.5 (6-22); Blood Urea Nitrogen 9 mg/dL (7-17); Carbon Dioxide 30 mmol/L (22-32); Chloride 98 mmol/L (98-107); Cholesterol 238 mg/dL (140-199); Estimated Glomerular Filt Rate > 60 mL/min (>60); Glucose 98 mg/dL (70-100); HDL Cholesterol 66 mg/dL (40-60); HEMOLYSIS < 15 (0-50); LDL Cholesterol Calculated 140 mg/dL (<100); Potassium 3.9 mmol/L (3.4-5.1); Sodium 137 mmol/L (137-145); Triglycerides 160 mg/dL (35-150)
[2024-10-11 22:19] LABS: Hemoglobin A1C% w Est Avg Glu 5.2 % (4.0-6.0)
[2024-10-11 22:23] LABS: Vitamin D 25 Hydroxy (D3) 19.7 ng/mL (30.0-100.0)
[2024-10-11 22:36] LABS: TSH w/ Reflex to FT4 < 0.02 uIU/mL (0.47-4.68)
[2024-10-11 23:33] LABS: Free T4, Direct Thyroxine 2.14 ng/dL (0.78-2.19)
[2024-10-13 05:12] LABS: Calcium 10.2 mg/dL (8.7-10.2); Parathyroid Hormone, Intact 63 pg/mL (15-65)
== END ==
PROVIDERS: PCP Family Medicine; Visit Provider Family Medicine
DX: E83.52 Hypercalcemia (principal); E78.5 Hyperlipidemia, unspecified; E03.9 Hypothyroidism, unspecified; R73.9 Hyperglycemia, unspecified
CPT/HCPCS: 80048; 80061; 82306; 82310; 83036; 83970; 84439; 84443

== ENCOUNTER → 2025-05-09 12:03 | Outpatient (CLI) | payer BC, SELFPAY ==
[2025-05-09 20:24] LABS: Hematocrit 39.3 % (36-46); Hemoglobin 13.4 g/dL (12.0-16.0)
[2025-05-09 20:29] LABS: Alanine Aminotransferase 19 IU/L (<35); Albumin 4.5 g/dL (3.5-5.0); Albumin Globulin Ratio 1.6 (1.0-2.8); Alkaline Phosphatase 74 U/L (38-126); Blood Urea Nitrogen 23 mg/dL (7-17); Calcium 9.6 mg/dL (8.4-10.2); Carbon Dioxide 25 mmol/L (22-32); Chloride 100 mmol/L (98-107); Estimated Glomerular Filt Rate 53 mL/min (>60); Globulin 2.8 g/dL (1.7-4.1); Glucose 97 mg/dL (70-99); HEMOLYSIS < 15 (0-50); Potassium 4.1 mmol/L (3.4-5.1); Sodium 134 mmol/L (137-145); Total Protein 7.3 g/dL (6.3-8.2)
[2025-05-09 20:44] LABS: Vitamin D 25 Hydroxy (D3) 44.0 ng/mL (30.0-100.0)
[2025-05-09 21:02] LABS: Free T4, Direct Thyroxine 1.42 ng/dL (0.78-2.19)
[2025-05-09 21:17] LABS: Thyroid Stimulating Hormone 0.413 uIU/mL (0.47-4.68)
== END ==
PROVIDERS: PCP Family Medicine; Visit Provider Family Medicine
DX: R79.89 Other specified abnormal findings of blood chemistry (principal); I10 Essential (primary) hypertension; E83.52 Hypercalcemia; E78.1 Pure hyperglyceridemia; E03.9 Hypothyroidism, unspecified
CPT/HCPCS: 80053; 82306; 84439; 84443; 84480; 85014; 85018